=== PATIENT | male | born 1970 | race African-American/Black ===

== ENCOUNTER 2022-12-15 18:49 | Inpatient (IN) | payer OTHER ==
[2022-12-15 21:36] VITALS: BMI 28.7
[2022-12-15] MEDS ORDERED: DICYCLOMINE HCL 10 MG CAPSULE PO PRN (23:14)
[2022-12-15] MEDS ORDERED: ACETAMINOPHEN 325 MG TABLET (FP) PO PRN ×2 (23:14)
[2022-12-15] MEDS ORDERED: METHOCARBAMOL 500 MG TABLET PO PRN (23:14)
[2022-12-15] MEDS ORDERED: guaiFENesin 200 MG/10 ML 10 ML UNIT-DOSE CUPS PO PRN (23:14)
[2022-12-15] MEDS ORDERED: BISMUTH SUBSALICYLATE 524 MG/30 ML PO PRN (23:14)
[2022-12-15] MEDS ORDERED: IBUPROFEN 400 MG TABLET (FP) PO PRN (23:14)
[2022-12-15] MEDS ORDERED: ONDANSETRON *ODT* 4 MG TABLET SL PRN (23:14)
[2022-12-15] MEDS ORDERED: hydrOXYzine PAMOATE 25 MG CAPSULE (FP) PO PRN (23:14)
[2022-12-15] MEDS ORDERED: MAG HYDROX/AL HYDROX/SIMETH 30 ML UNIT-DOSE CUP PO PRN (23:14)
[2022-12-15] MEDS ORDERED: MAGNESIUM HYDROX 2400MG/30ML ORAL SUSPENSION 30 ML CUP PO PRN (23:14)
[2022-12-15] MEDS ORDERED: IBUPROFEN 600 MG TABLET (FP) PO PRN (23:14)
[2022-12-15] MEDS ORDERED: BENZOCAINE/MENTHOL (CHLORASEPTIC ) LOZENGE MM PRN (23:14)
[2022-12-15] MEDS ORDERED: NALOXONE HCL (KLOXXADO) 8 MG SPRAY NS PRN (23:14)
[2022-12-15] MEDS ORDERED: POLYETHYLENE GLYCOL (HEALTHYLAX) 3350 17 GM PACKET PO PRN (23:14)
[2022-12-15] MEDS ORDERED: LOPERAMIDE HCL 2 MG CAPSULE PO PRN (23:14)
[2022-12-15] MEDS ORDERED: P-EPHED 60MG/TRIPROLIDI 2.5MG TABLET PO PRN (23:14)
[2022-12-15] MEDS ORDERED: hydrOXYzine PAMOATE 50 MG CAPSULE (FP) PO ONE (23:30)
[2022-12-16 01:19] VITALS: RESP 18
[2022-12-16] MEDS ORDERED: methaDONE HCL 10 MG TABLET (FOR DETOX USE ONLY) PO ONE (10:26)
[2022-12-16] MEDS ORDERED: cloNIDine HCL 0.1 MG TABLET PO PRN (10:26)
[2022-12-16] MEDS: PRENATAL VITAMINS W/ FOLIC ACID TABLET (FP) PO SCH (10:42)
[2022-12-16 11:38] LABS: HEMATOCRIT 40.3 % (35.4-49); HEMOGLOBIN 13.3 GM/dL (11.7-16.9); MCH 28.5 pg (25.7-33.7); MEAN CELL VOLUME 86.5 fl (80-96); MEAN PLT VOLUME 7.8 fl (7.5-11.1); PLATELET COUNT 209 10^3/uL (134-434); RBC 4.67 M/mm3 (4.00-5.60); WHITE BLOOD COUNT 4.8 K/mm3 (4.0-10.0)
[2022-12-16 13:02] LABS: BLOOD UREA NITROGEN 11.9 mg/dL (7-18); CALCIUM 8.2 mg/dL (8.5-10.1)
[2022-12-16 13:03] LABS: ALBUMIN 2.9 g/dl (3.4-5.0)
[2022-12-16 13:06] LABS: CREATININE 0.7 mg/dL (0.55-1.3)
[2022-12-16 13:07] LABS: BILIRUBIN,TOTAL 0.6 mg/dL (0.2-1); TOT PROT 6.2 g/dl (6.4-8.2)
[2022-12-16] MEDS ORDERED: THIAMINE HCL 100 MG TABLET (FP) PO SCH (22:00)
[2022-12-16] MEDS ORDERED: MELATONIN 5 MG TABLETS PO SCH (22:00)
[2022-12-17] MEDS ORDERED: diazePAM 5 MG TABLET PO PRN (09:06)
[2022-12-17 09:34] VITALS: BP 150/85; PULSE 68; TEMP 97.1
[2022-12-17] MEDS: PRENATAL VITAMINS W/ FOLIC ACID TABLET (FP) PO SCH (10:15)
[2022-12-18] MEDS ORDERED: methaDONE HCL 10 MG TABLET (FOR DETOX USE ONLY) PO ONE (10:00)
[2022-12-20] MEDS ORDERED: methaDONE HCL 10 MG TABLET (FOR DETOX USE ONLY) PO ONE (10:00)
== END 2022-12-17 10:50 | disposition left against medical advice (07) | DRG 770 ==
LOC: YASAS 18:49 → Y3N 12-16 00:22 → UNDOADMIN 12-16 00:22
PROVIDERS: ADMIT Family Medicine; ATTEND Family Medicine
PROC: HZ2ZZZZ Detoxification Services for Substance Abuse Treatment (ICD-10-PCS; principal; 2022-12-16)
DX: F11.23 Opioid dependence with withdrawal (principal); F39 Unspecified mood [affective] disorder; R05.8 Other specified cough; Z59.00 Homelessness unspecified
CPT/HCPCS: 36415; 80053; 85027; 86780; 93005; 93010; C9803-CS; U0003; U0005